=== PATIENT | male | born 1970 | race Caucasian/White ===

== ENCOUNTER 2023-02-12 09:09 | Day surgery (SDC) | payer BC, OTHER ==
[2023-02-12] MEDS ORDERED: Propofol 200 MG/20 ML SDV IV ONE (09:10)
[2023-02-12] MEDS ORDERED: Lactated Ringers 1,000 ML IV SCH (09:15)
[2023-02-12] MEDS ORDERED: Sodium Chloride 0.9% 10 ML Syringe FLUSH PRN (09:15)
== END 2023-02-12 11:50 | disposition home or self-care (01) ==
LOC: FB.SDS 09:09
PROVIDERS: ATTEND Surgery
DX: D12.6 Benign neoplasm of colon, unspecified (principal)
CPT/HCPCS: 00812; 88305; J2704; J7120

== ENCOUNTER 2025-02-16 07:50 | Day surgery (SDC) | payer OTHER ==
[~2025-02-16 07:50] MED LIST: Sodium Chloride 0.9% 10 ML Syringe FLUSH PRN
[2025-02-16] MEDS ORDERED: Propofol 200 MG/20 ML SDV IV ONE (07:51)
[2025-02-16] MEDS ORDERED: Midazolam 1 MG/ML 2 ML SDV IV ONE (07:51)
[2025-02-16] MEDS ORDERED: Lidocaine 2% Viscous Solution 15 ML UD PO ONE (07:51)
[2025-02-16] MEDS ORDERED: Lidocaine 2% 5 ML SDV IV ONE (07:51)
[2025-02-16] MEDS: Lactated Ringers 1,000 ML IV SCH (08:17)
[2025-02-16] MEDS: Simethicone Drops 40 MG/0.6 ML 30 ML Bottle ONE (09:31)
== END 2025-02-16 10:42 | disposition home or self-care (01) ==
LOC: FB.SDS 07:50
PROVIDERS: ATTEND Surgery
DX: K21.00 Gastro-esophageal reflux disease with esophagitis, without bleeding (principal); K29.50 Unspecified chronic gastritis without bleeding; K44.9 Diaphragmatic hernia without obstruction or gangrene; R13.10 Dysphagia, unspecified; K40.90 Unilateral inguinal hernia, without obstruction or gangrene, not specified as recurrent
CPT/HCPCS: 00731; 88305; 88342; A9270-GY; J2003; J2250; J2704; J7120